=== PATIENT | female | born 1965 | race Caucasian/White ===

== ENCOUNTER 2018-05-10 17:24 | Inpatient (IN) ==
[2018-05-10] MEDS ORDERED: Bisacodyl 10 MG Supp RECTAL PRN (17:52)
[2018-05-10] MEDS: Sod Chloride 0.9% Inj 1,000 ML IV.CONT SCH (18:48)
[2018-05-11] MEDS: Sod Chloride 0.9% Inj 1,000 ML IV.CONT SCH ×2 (04:48→16:56)
[2018-05-11 07:58] LABS: Baso % (Auto) 0.4 % (0.0-2.0); Eos # (Auto) 0.1 th/mm3 (0.0-0.4); Eos % (Auto) 1.4 % (0.0-4.0); Hematocrit 39.3 % (35.0-46.0); Hemoglobin 13.4 gm/dL (11.6-15.3); Lymph # (Auto) 0.9 th/mm3 (1.0-4.8); Lymph % (Auto) 17.6 % (9.0-44.0); Mean Corpuscular Hemoglobin 32.1 pg (27.0-34.0); Mean Corpuscular Volume 94.3 fL (80.0-100.0); Mean Platelet Volume 8.7 fL (7.0-11.0); Mono # (Auto) 0.5 th/mm3 (0.0-0.9); Neut # (Auto) 3.7 th/mm3 (1.8-7.7); Neut % (Auto) 71.6 % (16.0-70.0); Platelet Count 199 th/mm3 (150-450); Red Blood Count 4.17 mil/mm3 (4.00-5.30); Red Cell Distribution Width 13.4 % (11.6-17.2); White Blood Count 5.2 th/mm3 (4.0-11.0)
[2018-05-11 08:25] LABS: Calcium 8.9 mg/dL (8.5-10.1); Chloride 107 meq/L (98-107); Glomerular Filtration Rate Greater Than 89 mL/min (>89); Glucose,Random 98 mg/dL (74-106); Potassium 3.7 meq/L (3.5-5.1); Sodium 143 meq/L (136-145)
[2018-05-11 08:28] LABS: Anion Gap 8 meq/L (5-15); Blood Urea Nitrogen 8 mg/dL (7-18); Carbon Dioxide 27.8 meq/L (21.0-32.0)
[2018-05-11] MEDS ORDERED: Diatrizoate Meglum/Diatrizoate Sod Liq 9 ML UDC PO ONE (09:15)
[2018-05-11] MEDS: Pantoprazole Inj 40 MG Vial IV.PUSH SCH (09:33)
--- NOTE | 2018-05-11 15:50 | CT ---
EXAM DATE: 05/11/2018 3:19 PM EDT AGE/SEX: 52 years / Female INDICATIONS: F/U small bowel obstruction, history of rectal cancer. CLINICAL DATA: This is the patient's initial encounter. Patient reports that signs and symptoms have been present for 1 day and indicates a pain score of 1/10. MEDICAL/SURGICAL HISTORY: Carcinoma, rectal. small bowel obstruction None. RADIATION DOSE: 6.57 CTDI (mGy) COMPARISON: POI, CT ABDOMEN AND PELVIS W/ CONTRAST, 11/18/2017. . TECHNIQUE: Multiple contiguous axial images were obtained through the abdomen. Images were obtained using multiple row detector helical technique. Using automated exposure control and adjustment of the mA and/or kV according to patient size, radiation dose was kept as low as reasonably achievable to o btain optimal diagnostic quality images. DICOM format image data is available electronically for rev iew and comparison. FINDINGS: Lower Lungs: Stable mild right lung base scarring and pleural thickening or fluid. Minimal atelectasi s in the posterior left lung base. Liver: The liver has a homogeneous density without space-occupying lesion. There is no dilation of th e biliary tree. Spleen: Homogeneous density without enlargement. Pancreas: Unremarkable without mass or calcification. Kidneys: Normal in size and shape. No evidence of mass or hydronephrosis. Adrenal Glands: Unremarkable. Aorta: The aorta and proximal iliac vessels are grossly unremarkable without aneurysmal dilation. Bowel/Mesentery: Nasogastric tube in the stomach. Rectal anastomosis. No abnormal dilatation of annita l. No definite bowel wall thickening or inflammatory change. Contrast in normal caliber colon. Abdominal Wall: Intact. Retroperitoneum: No evidence of adenopathy in the retrocrural, para-aortic, or deep pelvic regions. Bladder: Contours are smooth. Reproductive Organs: No abnormal masses or calcifications seen. Inguinal: The inguinal region is unremarkable without evidence of adenopathy. Bony Structures: Unremarkable. CONCLUSION: No evidence of ongoing bowel obstruction. Electronically signed by: Ludin Cook MD 05/11/2018 3:49 PM EDT
--- NOTE | 2018-05-11 21:46 | P.PNCS ---
Subjective Interval history: afebrile, VSS UO good NGT less Objective Result Diagrams: 05/11/18 07:38 05/11/18 07:38 Objective Remarks: PE alert Abd - soft, min tympany, non-tender no stool Assessment and Plan - Plan Imp: CT shows no obstruction NGT to gravity start PO OOB
--- NOTE | 2018-05-11 22:34 | MH ---
cc: Hipolito Posey MD DATE OF ADMISSION: 05/10/2018 ADMITTING DIAGNOSIS: Small bowel obstruction, history of rectal cancer. HISTORY OF PRESENT ILLNESS: Ms. Bay is a 52-year-old female known for a long time since her surgery for rectal cancer done by Dr. Panda many years ago. She has been followed over the years with no sign of any recurrence. Several years ago, she came in with a small-bowel obstruction had to undergo lysis of adhesions and a segmental resection of small bowel segment. Since that time, she has been followed in the office and done fairly well. She does have some irregular bowel habits, consistent with postop LAR type bowel function. She has some urgency and frequency. She has also had some gas discomfort and some bloating and abdominal discomfort. The patient was scheduled to be seen in the office for routine followup; however, presented to [facility] with severe abdominal pain, mostly in the lower abdomen, left side, which prompted a CT scan showing some distended loops of small bowel with a transition zone consistent with a small-bowel obstruction. She was admitted, given some IV fluids, a nasogastric tube, and then she requested transfer to [facility] for care by the undersigned. Since transfer, she has been feeling somewhat better with the nasogastric tube. Denies any diarrhea or melena. No bowel movements or passage of flatus. No fever. She does have an appetite and is being bothered by the nasogastric tube. She was admitted for additional IV fluids and continued evaluation of possible small-bowel obstruction. Please see her previous admissions for complete past medical and surgical history. PHYSICAL EXAMINATION: GENERAL: A very pleasant, well-developed female in no acute distress. HEENT: Remarkable for pink, dry membranes. Nonicteric sclerae. NECK: Supple without gross adenopathy. CHEST: Relatively clear, symmetrically expanding. HEART: Regular rhythm. ABDOMEN: Very soft. Some tympany. No rebound or guarding. No masses noted. Bowel sounds are pretty active. EXTREMITIES: Show no cyanosis or clubbing ,and minimal trace pedal edema. LABORATORY STUDIES: White count was 5.2, hemoglobin 13.4. Electrolytes remarkable for a BUN of 8 and creatinine of 0.52. IMPRESSION: A 52-year-old female with previous surgery for rectal cancer and second surgery for lysis of adhesions and small-bowel obstruction presenting with what appears to be a significant dilatation of the small bowel with the transition point on CT scan. Fortunately CT scan did not give any IV or any oral contrast material. The films from previous hospital were also not transported to her present hospital, [place]. We will continue the IV fluids, NG tube suction and set her up for a CT scan with oral contrast first thing in the morning to assess the progress of any small bowel dilatation and perhaps resolution of the small-bowel obstruction. Risks, benefits, and alternatives were discussed at great length with the patient and she will to ambulate as much as possible and have the CT scan first thing in the morning. Any change in her condition would prompt alteration in the course of treatment, depending upon the findings at that time. MD FABIENNE Watkins/zain , 09:52 PM , 10:02 PM
[2018-05-12] MEDS: Sod Chloride 0.9% Inj 1,000 ML IV.CONT SCH ×2 (02:56→06:12)
[2018-05-12] MEDS: Pantoprazole Inj 40 MG Vial IV.PUSH SCH (08:40)
--- NOTE | 2018-05-12 09:24 | P.PNCS ---
Subjective Interval history: afebrile, VSS UO good kamila PO +BM Objective Result Diagrams: 05/11/18 07:38 05/11/18 07:38 Objective Remarks: PE alert Abd - soft, min tympany, non-tender Assessment and Plan - Plan Imp: CT shows no obstruction NGT DC'd start PO, adv OOB DC plans
== END 2018-05-12 14:23 | disposition home or self-care (01) ==
LOC: N07 17:24
PROVIDERS: ADMIT Colon & Rectal Surgery; ATTEND Colon & Rectal Surgery
CPT/HCPCS: 74176; 80048; 85025; C9113; J2405; J2765; J7030; Q9963